=== PATIENT | male | born 1990 | race Caucasian/White ===

== ENCOUNTER → 2023-04-05 15:30 | Outpatient (CLI) | payer OTHER, SELFPAY ==
--- NOTE | 2023-04-05 15:39 | DI.RAD.S_ITS ---
PROCEDURE: XR CLAVICLE RT INDICATIONS: FRACTURE RIGHT CLAVICLE TECHNIQUE: 2 views of the clavicle were acquired. COMPARISON: None. FINDINGS: Bones: Plate and screw fixation of a prior mid clavicle fracture. No suspicious bony lesions. Soft tissues: No suspicious soft tissue calcifications. IMPRESSION: Plate and screw fixation of a prior mid clavicle fracture. The fracture line is not seen. No acute appearing fractures are identified. Dictated by: Neptali Saucedo M.D. on 04/05/2023 at 16:25 Approved by: Neptali Saucedo M.D. on 04/05/2023 at 16:26
== END ==
PROVIDERS: Referring Provider Chiropractor; Visit Provider Chiropractor
DX: S42.001A Fracture of unspecified part of right clavicle, initial encounter for closed fracture (principal); X58.XXXA Exposure to other specified factors, initial encounter
CPT/HCPCS: 73000